=== PATIENT | male | born 1945 | race Two or more races ===

== ENCOUNTER 2021-05-26 23:00 | Emergency (ER) | payer OTHER ==
[~2021-05-26] VITALS: Ht 157.5 cm; Wt 86.2 kg
[2021-05-27 00:52] VITALS: BP 140/89
== END 2021-05-27 01:27 | disposition left against medical advice (07) ==
LOC: ER 23:00
DX: S61.211A Laceration without foreign body of left index finger without damage to nail, initial encounter (principal); Z53.21 Procedure and treatment not carried out due to patient leaving prior to being seen by health care provider; W26.0XXA Contact with knife, initial encounter; Y93.89 Activity, other specified; Y92.89 Other specified places as the place of occurrence of the external cause; Y99.8 Other external cause status

== ENCOUNTER 2022-02-25 11:34 | Emergency (ER) | payer OTHER ==
[~2022-02-25] VITALS: Ht 157.5 cm; Wt 88.9 kg
[2022-02-25 12:56] VITALS: BP 146/93
[2022-02-25] MEDS ORDERED: TETANUS-DIPTH-ACEL PERTUSSIS 0.5ML SYR Tdap IM ONE (13:15)
[2022-02-25] MEDS ORDERED: AMOX-277 PO (13:23)
== END 2022-02-25 13:47 | disposition home or self-care (01) ==
LOC: ER 11:34
DX: S61.411A Laceration without foreign body of right hand, initial encounter (principal); S61.451A Open bite of right hand, initial encounter; I10 Essential (primary) hypertension; Z79.2 Long term (current) use of antibiotics; W54.0XXA Bitten by dog, initial encounter; Y93.89 Activity, other specified; Y92.89 Other specified places as the place of occurrence of the external cause; Y99.8 Other external cause status
CPT/HCPCS: 12002; 90471; 90715; 99283; J2001

== ENCOUNTER 2022-03-06 09:15 | Emergency (ER) | payer OTHER ==
[~2022-03-06] VITALS: Ht 157.5 cm; Wt 88.9 kg
[~2022-03-06 09:15] MED LIST: AMOX-277 PO
[2022-03-06 12:18] VITALS: BP 139/86
== END 2022-03-06 12:48 | disposition home or self-care (01) ==
LOC: ER 09:15
DX: S61.411D Laceration without foreign body of right hand, subsequent encounter (principal); W54.0XXD Bitten by dog, subsequent encounter

== ENCOUNTER 2024-04-10 17:00 | Emergency (ER) | payer MEDICAID, OTHER ==
[~2024-04-10] VITALS: Ht 157.5 cm; Wt 88.0 kg
[~2024-04-10 17:00] MED LIST changes: -AMOX-277 PO; +AMOX875T4 PO
[2024-04-10 18:43] LABS: Basophils # (auto) 0 10 ^3/uL (0-0.2); Basophils % (auto) 0.8 % (0.0-2.0); Eosinophils # (auto) 0.1 10 ^3/uL (0-0.8); Eosinophils % (auto) 2.5 % (0.0-7.0); Hematocrit 46.9 % (41.0-53.0); Hemoglobin 15.7 g/dL (13.5-17.5); Mean Corpuscular Hemoglobin 30.6 pg (28.0-32.0); Mean Corpuscular Hgb Conc. 33.4 g/dL (32.0-36.0); Mean Corpuscular Volume 91.5 fL (80.0-100.0); Monocytes # (auto) 0.7 10 ^3/uL (0-1.3); Neutrophils # (auto) 2.8 10 ^3/uL (1.6-8.6); Neutrophils % (auto) 48.7 % (37.0-80.0); Nucleated Red Blood Cells % 0.4 %; Red Blood Cells 5.13 10^6/uL (4.5-5.90); Red Cell Distribution Width 13.4 % (11.8-14.3); White Blood Cell 5.7 10^3/uL (4.4-10.8)
[2024-04-10 19:01] LABS: Alanine Aminotransferase 15 U/L (7-40); Albumin 3.9 g/dL (3.2-4.8); Alkaline Phosphatase 66 U/L (46-116); Anion Gap 6 (5-15); Aspartate Aminotransferase 13 U/L (13-40); BUN/Creatinine Ratio 12.6 (10.0-20.0); Blood Urea Nitrogen 13 mg/dL (9-23); Calcium 9.6 mg/dL (8.7-10.4); Carbon Dioxide 29 mmol/L (20-30); Chloride 105 mmol/L (98-107); Glucose 96 mg/dL (74-106); Lipase 28 U/L (12-53); Potassium 4.7 mmol/L (3.5-5.1); Sodium 140 mmol/L (136-145)
[2024-04-10 19:02] LABS: Bilirubin, Total 0.4 mg/dL (0.2-1.0); Total Protein 6.1 g/dL (5.7-8.2)
[2024-04-10] MEDS ORDERED: PANT40T PO (20:08)
[2024-04-10] MEDS ORDERED: SUCR1SUS5 PO (20:08)
[2024-04-10] MEDS: SUCRALFATE 1 GM TAB PO ONE (20:42)
[2024-04-10] MEDS: PANTOPRAZOLE 40 MG TAB PO ONE (20:42)
[2024-04-10] MEDS: LIDOCAINE VISCOUS 2% 15ML UD PO ONE (20:47)
[2024-04-10] MEDS: hydrALAZINE HCL 10 MG TAB PO ONE (20:50)
[2024-04-10 21:14] LABS: Urine Bacteria None Seen /hpf (None Seen)
[2024-04-10 21:47] LABS: Urine Blood Negative /uL (Negative); Urine Clarity Clear (Clear); Urine Color Light-Yellow (Yellow); Urine Protein, UAD Negative (Negative); Urine Specific Gravity 1.013 (1.001-1.035); Urine Urobilinogen Normal (Negative); Urine WBC 1 /hpf (0 - 3)
[2024-04-10 22:12] VITALS: BP 147/87; PULSE 70; RESP 17; TEMP 98.5; O2SAT 96
== END 2024-04-10 22:13 | disposition home or self-care (01) ==
LOC: ER 17:04
DX: K44.9 Diaphragmatic hernia without obstruction or gangrene (principal); K59.00 Constipation, unspecified; I10 Essential (primary) hypertension
CPT/HCPCS: 36415; 74176; 80053; 81001; 83690; 84484; 85025; 93005

== ENCOUNTER → 2024-11-25 | Outpatient (CLI) | payer OTHER, MEDICAID ==
[~2024-11-25] MED LIST changes: +PANT40T PO; +SUCR1SUS5 PO
[2024-11-25 09:12] LABS: Urine Bacteria None Seen /hpf (None Seen)
[2024-11-25 09:46] LABS: Basophils # (auto) 0 10 ^3/uL (0-0.2); Basophils % (auto) 0.6 % (0.0-2.0); Eosinophils # (auto) 0.2 10 ^3/uL (0-0.8); Eosinophils % (auto) 3.1 % (0.0-7.0); Hematocrit 48.9 % (41.0-53.0); Hemoglobin 16.2 g/dL (13.5-17.5); Lymphocytes # (auto) 1.9 10 ^3/uL (0.4-5.4); Mean Corpuscular Hgb Conc. 33.1 g/dL (32.0-36.0); Mean Corpuscular Volume 90.8 fL (80.0-100.0); Monocytes # (auto) 0.5 10 ^3/uL (0-1.3); Monocytes % (auto) 9.8 % (0.0-12.0); Neutrophils # (auto) 2.8 10 ^3/uL (1.6-8.6); Neutrophils % (auto) 51.5 % (37.0-80.0); Nucleated Red Blood Cells % 0.1 %; Platelet Count (auto) 182 10^3/uL (140-450); Red Blood Cells 5.38 10^6/uL (4.5-5.90); Red Cell Distribution Width 14.7 % (11.8-14.3); White Blood Cell 5.3 10^3/uL (4.4-10.8)
[2024-11-25 09:54] LABS: Urine Blood Negative /uL (Negative); Urine Clarity Clear (Clear); Urine Color Light-Yellow (Yellow); Urine Protein, UAD Negative (Negative); Urine Specific Gravity 1.019 (1.001-1.035); Urine Squamous Epithelial Cell FEW /hpf (<5); Urine Urobilinogen Normal (Negative)
[2024-11-25 10:07] LABS: Alanine Aminotransferase 22 U/L (7-40); Albumin 4.4 g/dL (3.2-4.8); Alkaline Phosphatase 74 U/L (46-116); Anion Gap 8 (5-15); Aspartate Aminotransferase 20 U/L (13-40); BUN/Creatinine Ratio 12.8 (10.0-20.0); Blood Urea Nitrogen 15 mg/dL (9-23); Calcium 9.4 mg/dL (8.7-10.4); Carbon Dioxide 29 mmol/L (20-31); Chloride 102 mmol/L (98-107); Cholesterol 181 mg/dL (< 200); Glucose 94 mg/dL (74-106); Potassium 4.2 mmol/L (3.5-5.1); Sodium 139 mmol/L (136-145); Triglycerides 105 mg/dL (< 150)
[2024-11-25 10:08] LABS: Bilirubin, Total 0.6 mg/dL (0.2-1.0); HDL Cholesterol 37 mg/dL (40-59); Total Protein 6.7 g/dL (5.7-8.2)
[2024-11-25 10:09] LABS: LDL Cholesterol 132 mg/dL (< 100)
== END | disposition home or self-care (01) ==
LOC: LAB 08:58
PROVIDERS: ATTEND Internal Medicine
DX: I10 Essential (primary) hypertension (principal); E55.9 Vitamin D deficiency, unspecified; K92.1 Melena; Z85.46 Personal history of malignant neoplasm of prostate
CPT/HCPCS: 36415; 80053; 80061; 81001; 82274; 82306; 84153; 84443; 85025

== ENCOUNTER 2025-02-17 11:09 | Day surgery (SDC) | payer OTHER, MEDICAID ==
[2025-02-16 14:57] LABS: Basophils # (auto) 0 10 ^3/uL (0-0.2); Basophils % (auto) 0.6 % (0.0-2.0); Eosinophils # (auto) 0.1 10 ^3/uL (0-0.8); Eosinophils % (auto) 1.9 % (0.0-7.0); Hematocrit 51.8 % (41.0-53.0); Hemoglobin 17.3 g/dL (13.5-17.5); Lymphocytes # (auto) 1.6 10 ^3/uL (0.4-5.4); Lymphocytes % (auto) 27.5 % (10.0-50.0); Mean Corpuscular Hemoglobin 29.9 pg (28.0-32.0); Mean Corpuscular Hgb Conc. 33.3 g/dL (32.0-36.0); Mean Corpuscular Volume 89.8 fL (80.0-100.0); Monocytes # (auto) 0.7 10 ^3/uL (0-1.3); Neutrophils # (auto) 3.3 10 ^3/uL (1.6-8.6); Platelet Count (auto) 179 10^3/uL (140-450); Red Blood Cells 5.77 10^6/uL (4.5-5.90); Red Cell Distribution Width 14.1 % (11.8-14.3); White Blood Cell 5.7 10^3/uL (4.4-10.8)
[2025-02-16 15:12] LABS: INR 1.03 (0.9-1.15); Partial Thromboplastin Time 31.3 SEC (24.5-34.5); Prothrombin Time 10.9 sec (9.3-11.8)
[2025-02-16 15:26] LABS: Alanine Aminotransferase 18 U/L (7-40); Albumin 4.3 g/dL (3.2-4.8); Alkaline Phosphatase 72 U/L (46-116); Anion Gap 5 (5-15); Aspartate Aminotransferase 18 U/L (13-40); BUN/Creatinine Ratio 14.3 (10.0-20.0); Bilirubin, Total 0.5 mg/dL (0.2-1.0); Blood Urea Nitrogen 16 mg/dL (9-23); Calcium 9.9 mg/dL (8.7-10.4); Chloride 101 mmol/L (98-107); Glucose 87 mg/dL (74-106); Potassium 4.3 mmol/L (3.5-5.1); Sodium 138 mmol/L (136-145); Total Protein 6.9 g/dL (5.7-8.2)
[2025-02-16 15:31] LABS: Carbon Dioxide 32 mmol/L (20-31)
[~2025-02-17] VITALS: Ht 160 cm; Wt 84.8 kg
[~2025-02-17 11:09] MED LIST changes: +AML5T GT; -AMOX875T4 PO; -SUCR1SUS5 PO
[2025-02-17] MEDS ORDERED: SODIUM CHLORIDE LOCK 10 ML ONE (13:08)
[2025-02-17 13:15] VITALS: O2SAT 96
[2025-02-17] MEDS: LIDOCAINE VISCOUS 2% 15ML UD ONE (13:19)
[2025-02-17] MEDS: fentaNYL CITRATE 100 MCG/2 ML VL ONE (13:21)
[2025-02-17] MEDS: diphenhdrAMINE HCL 50 MG/1 ML VL ONE (13:21)
[2025-02-17] MEDS: MIDAZOLAM HCL 5 MG/ML-1ML VIAL ONE (13:21)
[2025-02-17 13:34] VITALS: PULSE 75; RESP 18; TEMP 97.4; O2SAT 99
--- NOTE | 2025-02-17 13:37 | DVHOP2 ---
Operative Report DATE OF OPERATION: 02/17/25 PROCEDURE: Upper Endoscopy with biopsy PREOPERATIVE INDICATION: The patient is a 80 -year-old male undergoing endoscopy for chronic GERD dyspepsia and bloating and imaging showing a large hiatal hernia POSTOPERATIVE DIAGNOSES: 1. 5 cm sliding-type hiatal hernia with a slight paraesophageal component with Kumar's erosions within the hiatal hernia sac and the diaphragmatic impingement 2. Mild gastritis otherwise normal examination up to the 2nd and 3rd part of the duodenum PROCEDURE PERFORMED BY: Clive Bazzi GI NURSE: Nicole SCOPE: Olympus videoendoscope. ASA CLASS: 2. PREOPERATIVE MEDICATIONS: Versed 3 mg, Fentanyl 75 mcg, Benadryl 50 mg I administered moderate sedation throughout this _8_ minutes procedure. An independent trained observer pushed medications at my direction, and monitored the patient's level of consciousness and physiological status throughout. PROCEDURE IN DETAIL: After obtaining an informed consent, the patient was placed on left lateral decubitus position. The patient was then sedated with the above medications. A bite block was placed between his teeth. The endoscope was then passed through the oropharynx, into the esophagus, and through the stomach and pylorus up to the second and third part of the duodenum. The endoscope was then withdrawn. Duodenal biopsies were obtained The 2nd and 3rd part of the duodenal and the duodenal bulb were normal. The pre-pyloric area antrum and body showed mild gastritis. Gastric biopsies were obtained On retroflexion the fundus cardia and angularis were normal. There was a hiatal hernia noted. The endoscope was then withdrawn into the distal esophagus Patient had a 5 cm sliding-type hiatal hernia with paraesophageal component, Kumar's erosions within the hiatal hernia sac and the diaphragmatic impingement The patient tolerated the procedure well without difficulty. COMPLICATIONS : None SPECIMENS: Duodenal biopsies Gastric biopsies DISPOSITION: Stable D/C to home PLAN: 1. Await for biopsy result 2. Will place pt on Protonix 40 mg p.o. daily 3. Lifestyle and dietary modifications for GERD 4. Resume GI soft diet 5. Avoid aspirin NSAIDs smoking and alcohol 6. Outpatient follow up with me in 4-6 weeks to review results and discuss further management CLIVE BAZZI MD February 17, 2025 13:37
[2025-02-17 13:44] VITALS: PULSE 84; RESP 20; O2SAT 93
[2025-02-17 13:54] VITALS: PULSE 80; RESP 20; O2SAT 96
[2025-02-17 14:34] VITALS: BP 147/87; PULSE 71; RESP 17; O2SAT 95
== END 2025-02-17 14:45 | disposition home or self-care (01) ==
LOC: GI 11:09
PROVIDERS: ATTEND Internal Medicine Gastroenterology
DX: K21.9 Gastro-esophageal reflux disease without esophagitis (principal); K29.50 Unspecified chronic gastritis without bleeding; K44.9 Diaphragmatic hernia without obstruction or gangrene; R10.13 Epigastric pain; R14.0 Abdominal distension (gaseous); I10 Essential (primary) hypertension; Z79.899 Other long term (current) drug therapy; Z98.890 Other specified postprocedural states
CPT/HCPCS: 36415; 43239; 80053; 85025; 85610; 85730; 88305; 88312; 88342; J1200; J2250; J3010; J7030; 99152

== ENCOUNTER 2025-06-06 10:01 | Inpatient (IN) | payer OTHER, MEDICAID ==
[~2025-06-06] VITALS: Ht 170.2 cm; Wt 89.7 kg
--- NOTE | 2025-06-06 10:28 | ED.PDOC ---
History of Present Illness HPI Comments 80-year-old male who is Burmese-speaking BIBA with prior medical history of hypertension, chronic back pain: Surgical history of prostate surgery, hernia repair and then chief complaint of back pain. Patient reports on having lower back pain started last night in called EMS stating that he is unable to ambulate due from the pain. Patient states feels like sciatica. Patient notes on not taking any medications for the back pain. Denies chills, fever, N/V/D, SOB, CP. No other associated symptoms, modifiers, recent injuries or sick contacts present at this time. Chief Complaint: Back Pain Time Seen by MD: 10:20 Primary Care Provider: DEB Rios Notes: Nurses Notes, Medications, Allergies Allergies: Coded Allergies: NO KNOWN ALLERGIES (Unverified , 02/25/22) Home Meds Active Scripts Pantoprazole Sodium Sesquihydr (Pantoprazole Sodium) 40 Mg Tab, 40 MG PO DAILY for 5 Days, #5 TAB Prov:H[employer] RESIDENT 04/10/24 Reported Medications Amlodipine Besylate (NORVASC TABLET) 5 Mg Tb, 5 MG GT DAILY, TAB 02/16/25 Information Source: Patient Mode of Arrival: EMS Severity: Moderate Timing: Hours Duration: Since onset, Hours Prehospital treatment: None Past Medical History PAST MEDICAL HISTORY: HTN Past Medical History (Other): Chronic back pain Surgical History: Hernia Repair Surgical History (Other): Prostate surgery Family History Family History: Reviewed,noncontributory to illness, Unknown Social History Smoker: Non-Smoker Alcohol: Denies ETOH Use Drugs: Denies Drug Use Lives In: Home Constitutional: denies: chills, diaphoresis, fatigue, fever, malaise, sweats, weakness, others EENTM: denies: blurred vision, double vision, ear bleeding, ear discharge, ear drainage, ear pain, ear ringing, eye pain, eye redness, hearing loss, mouth pain, mouth swelling, nasal discharge, nose bleeding, nose congestion, nose pain, photophobia, tearing, throat pain, throat swelling, voice changes, others Respiratory: denies: cough, hemoptysis, orthopnea, SOB at rest, shortness of breath, SOB with excertion, stridor, wheezing, others Cardiovascular: denies: chest pain, dizzy spells, diaphoresis, Dyspnea on exertion, edema, irregular heart beat, left arm pain, lightheadedness, palpitations, PND, syncope, others Gastrointestinal: denies: abdomen distended, abdominal pain, blood streaked bowels, constipated, diarrhea, dysphagia, difficulty swallowing, hematemesis, melena, nausea, poor appetite, poor fluid intake, rectal bleeding, rectal pain, vomiting, others Genitourinary: denies: burning, dysuria, flank pain, frequency, hematuria, incontinence, penile discharge, penile sore, pain, testicle pain, testicle swelling, urgency, others Neurological: denies: dizziness, fainting, headache, left sided numbness, left sided weakness, numbness, paresthesia, pre-existing deficit, right sided numbn ess, right sided weakness, seizure, speech problems, tingling, tremors, weakness, others Musculoskeletal: reports: back pain; denies: gout, joint pain, joint swelling, muscle pain, muscle stiffness, neck pain, others Integumetry: denies: bruises, change in color, change in hair/nails, dryness, laceration, lesions, lumps, rash, wounds, others Allergic/Immunocompromised: denies: Difficulty Healing, Frequent Infections, Hives, Itching, others Hematologic/Lymphatic: denies: anemia, blood clots, easy bleeding, easy bruising, swollen glands, others Endocrine: denies: excessive hunger, excessive sweating, excessive thirst, excessive urination, flushing, intolerance to cold, intolerance to heat, unexplained weight gain, unexplained weight loss, others Psychiatric: denies: anxiety, bipolar disorder, depression, hopeless, panic disorder, schizophrenia, sleepless, suicidal, others All Other Systems: Reviewed and Negative Physical Exam General Appearance: Moderate Distress, Normal HEENT: Normal ENT Inspection, Pharynx Normal, TMs Normal Neck: Full Range of Motion, Non-Tender, Normal, Normal Inspection Respiratory: Chest Non-Tender, Lungs Clear, No Accessory Muscle Use, No Respiratory Distress, Normal Breath Sounds Cardiovascular: No Edema, No JVD, No Murmur, No Gallop, Normal Peripheral Pulses, Regular Rate/Rhythm Breast Exam: Deferred Gastrointestinal: No Organomegaly, Non Tender, No Pulsatile Mass, Normal Bowel Sounds, Soft Genitalia: Deferred Pelvic: Deferred Rectal: Deferred Extremities: No calf tenderness, Normal capillary refill, Normal inspection, Normal range of motion, Non-tender, No pedal edema Musculoskeletal : Apperance: Normal Neurologic: Alert, welder/fitter II-XII nml as Tested, No Motor Deficits, Normal Affect, Normal Mood, No Sensory Deficits Cerebellar Function: NOT DONE Reflexes: NOT DONE Skin: Dry, Normal Color, Warm Peripheral Pulses: 3+ Radial (R), 3+ Radial (L) Lymphatic: No Adenopathy Was a procedure done? Was a procedure done?: No Differential Dx Considerations may include: Sciatica Electrolyte imbalance X-Ray, Labs, Meds, VS Vital Signs Date Time Temp Pulse Resp B/P (MAP) Pulse Ox O2 Delivery O2 Flow Rate FiO2 06/06/25 10:49 70 16 172/97 06/06/25 10:02 98.0 70 16 172/97 95 98.0 Lab Test 06/06/25 11:56 06/06/25 10:37 Range/Units Troponin I High Sensitivity 4 4 </=54 ng/L White Blood Count 6.5 4.4-10.8 10^3/uL Red Blood Count 5.40 4.5-5.90 10^6/uL Hemoglobin 16.6 13.5-17.5 g/dL Hematocrit 49.6 41.0-53.0 % Mean Corpuscular Volume 91.9 80.0-100.0 fL Mean Corpuscular Hemoglobin 30.7 28.0-32.0 pg Mean Corpuscular Hemoglobin Concent 33.4 32.0-36.0 g/dL Red Cell Distribution Width 14.3 11.8-14.3 % Platelet Count 189 140-450 10^3/uL Mean Platelet Volume 8.7 6.9-10.8 fL Neutrophils (%) (Auto) 58.0 37.0-80.0 % Lymphocytes (%) (Auto) 29.5 10.0-50.0 % Monocytes (%) (Auto) 10.2 0.0-12.0 % Eosinophils (%) (Auto) 1.9 0.0-7.0 % Basophils (%) (Auto) 0.4 0.0-2.0 % Neutrophils # (Auto) 3.8 1.6-8.6 10 ^3/uL Lymphocytes # (Auto) 1.9 0.4-5.4 10 ^3/uL Monocytes # (Auto) 0.7 0-1.3 10 ^3/uL Eosinophils # (Auto) 0.1 0-0.8 10 ^3/uL Basophils # (Auto) 0 0-0.2 10 ^3/uL Nucleated Red Blood Cells 0.2 % Sodium Level 141 136-145 mmol/L Potassium Level 5.1 3.5-5.1 mmol/L Chloride Level 101 98-107 mmol/L Carbon Dioxide Level 32 H 20-31 mmol/L Anion Gap 8 5-15 Blood Urea Nitrogen 17 9-23 mg/dL Creatinine 1.10 0.700-1.30 mg/dL Glomerular Filtration Rate Calc 69 >90 mL/min BUN/Creatinine Ratio 15.5 10.0-20.0 Serum Glucose 82 74-106 mg/dL Calcium Level 9.2 8.7-10.4 mg/dL Current Medications Medications (Trade) Dose Ordered Sig/Kamila Route Start Time Stop Time Status Last Admin Morphine Sulfate 4 mg ONCE ONCE IV 06/06/25 10:30 06/06/25 10:31 DC 06/06/25 10:49 Ondansetron HCl (Zofran) 4 mg ONCE ONCE IV 06/06/25 10:30 06/06/25 10:31 DC 06/06/25 10:47 Methylprednisolone Sodium Succinate (Solu Medrol) 125 mg ONCE ONCE IV 06/06/25 11:00 06/06/25 12:46 DC 06/06/25 12:22 [place] [address] Ph: [phone] DIAGNOSTIC IMAGING Diagnostic Imaging Report : [id number] Signed PATIENT: MALINDA YIN ACCT: [id number] UNIT: [id number] : 1945 LOC: ER ROOM / BED: / AGE / SEX: 80 / M ADM STATUS: REG ER SERVICE 1028 ORDERING PHYSICIAN: NANCY MONTES MD PROCEDURE(s): LS - LUMBAR SPINE 4+ VIEW REASON: pain ORDER NUMBER(s): [id number], ACCESSION NUMBER(s): [id number] XY LUMBAR SPINE 4+ VIEW, HISTORY: pain COMPARISON: None TECHNICAL DATA: Frontal and lateral views were obtained of the lumbar spine as well as bilateral oblique views . FINDINGS: There are 5 lumbar type vertebral bodies. Lumbar curvature is within normal limits. Moderate anterolisthesis of L5-S1 with bilateral pars defects. Vertebral body heights are maintained. Disk heights are narrowed and degenerative. The facet joints appear degenerative. The sacroiliac joints are symmetric. Paraspinal soft tissues are within normal limits. IMPRESSION: Moderate anterolisthesis of L5-S1 with bilateral pars defects. ATED BY: MAHESH RYAN MD DICTATED DATE/TIME: 06/06/251156 SIGNED BY: MAHESH RYAN MD SIGNED DATE/TIME: 06/06/251156 CC: [place] [address] Ph: [phone] DIAGNOSTIC IMAGING Diagnostic Imaging Report : [id number] Signed PATIENT: MALINDA YIN ACCT: [id number] UNIT: [id number] : 1945 LOC: ER ROOM / BED: / AGE / SEX: 80 / M ADM STATUS: REG ER SERVICE 1028 ORDERING PHYSICIAN: NANCY MONTES MD PROCEDURE(s): CXRP - CHEST PORTABLE REASON: sob ORDER NUMBER(s): [id number], ACCESSION NUMBER(s): [id number] XY CHEST PORTABLE, HISTORY: sob COMPARISON: None None TECHNICAL DATA: 1 view of the chest was obtained. FINDINGS: Lines and tubes: None Cardiomediastinal silhouette: normal Pulmonary vasculature: normal Lung expansion: normal Lung airspace: normal Lung interstitium: normal Pleura: normal Pneumothorax: no Bones: Unremarkable Other: no IMPRESSION: No acute intrathoracic abnormality. ATED BY: MAHESH RYAN MD DICTATED DATE/TIME: 06/06/251149 SIGNED BY: MAHESH RYAN MD SIGNED DATE/TIME: 06/06/251149 CC: Patient alert. Complaining of back pain. Possible sciatica. Able to move his extremities. Blood pressure elevated. Was given labetalol. Establish intravenous access. Was given morphine. Was given Zofran. Was given Solu-Medrol. Has good sphincter tone. Able to control his bowel movement. Possibly will need MRI. Explained to the patient. Continue monitoring. Time of 1ST Reevaluation: 10:50 Reevaluation 1ST: Unchanged Patient Education/Counseling: Diagnosis, Treatment, Prognosis Family Education/Counseling: No Family Present SEPSIS Sepsis Screen Date sepsis recognized/suspect: Jun 06, 2025 Time Sepsis recognized/suspect: 1002 Recent Procedure: No On Antibiotic Therapy: No Respiratory Rate >20: No Heart Rate >90: No Temp<36 C (96.8 F) or >38.3 C: No SBP <90 or MAP <65 mmHG: No New Acute Mental Status Change: No Is the patient on CPAP, BIPAP,: No Physician Orders Lumbar Spine 4+ View (06/06/25 10:28) Chest Portable (06/06/25 10:28) Urinalysis (06/06/25 10:28) Vital Signs Date Time Temp Pulse Resp B/P (MAP) Pulse Ox O2 Delivery O2 Flow Rate FiO2 06/06/25 10:49 70 16 172/97 06/06/25 10:02 98.0 70 16 172/97 95 98.0 Laboratory Tests Test 06/06/25 10:37 White Blood Count 6.5 10^3/uL (4.4-10.8) Medications Medications Dose Ordered Sig/Kamila Route Start Time Stop Time Status Last Admin Dose Admin Methylprednisolone Sodium Succinate 125 mg ONCE ONCE IV 06/06/25 11:00 06/06/25 12:46 DC 06/06/25 12:22 Morphine Sulfate 4 mg ONCE ONCE IV 06/06/25 10:30 06/06/25 10:31 DC 06/06/25 10:49 Ondansetron HCl 4 mg ONCE ONCE IV 06/06/25 10:30 06/06/25 10:31 DC 06/06/25 10:47 Departure 1 Departure Time of Disposition: 11:00 Impression: Primary Impression: Chronic pain syndrome Disposition: ADMITTED INPATIENT Admit to: Med Surg Condition: Guarded Critical Care Note Critical Care Time?: No Stability Stability form required: No Heart Score Heart Score: Heart Score Response (Comments) Value History Slightly Suspicious 0 EKG N/A 0 Age >65 2 Risk Factors >3 or Hx ASHD 2 Troponin Normal limit 0 Total 4 I personally scribed for NANCY MONTES MD ([email or web address]) on 06/06/25 at 10:28. Electronically submitted by Igor Perez ([email or web address]). I personally scribed for NANCY MONTES MD ([email or web address]) on 06/06/25 at 14:12. Electronically submitted by Keny Tarango ([email or web address]). I personally scribed for NANCY MONTES MD ([email or web address]) on 06/06/25 at 14:13. Electronically submitted by Keny Tarango ([email or web address]). NANCY MONTES MD Jun 06, 2025 10:28
[2025-06-06] MEDS: ONDANSETRON HCL 4 MG/2 ML VIAL IV ONE (10:47)
[2025-06-06] MEDS: MORPHINE SULFATE 4 MG/ML SYR/VIAL IV ONE (10:49)
[2025-06-06 11:10] LABS: Hematocrit 49.6 % (41.0-53.0); Hemoglobin 16.6 g/dL (13.5-17.5); Mean Corpuscular Hemoglobin 30.7 pg (28.0-32.0); Mean Corpuscular Volume 91.9 fL (80.0-100.0); Nucleated Red Blood Cells % 0.2 %
[2025-06-06 11:19] LABS: Anion Gap 8 (5-15); Chloride 101 mmol/L (98-107); Potassium 5.1 mmol/L (3.5-5.1); Sodium 141 mmol/L (136-145)
[2025-06-06 11:20] LABS: Calcium 9.2 mg/dL (8.7-10.4)
[2025-06-06 11:25] LABS: BUN/Creatinine Ratio 15.5 (10.0-20.0); Blood Urea Nitrogen 17 mg/dL (9-23); Glucose 82 mg/dL (74-106)
[2025-06-06 11:45] LABS: Carbon Dioxide 32 mmol/L (20-31)
--- NOTE | 2025-06-06 11:52 | DVH ---
XY CHEST PORTABLE, HISTORY: sob COMPARISON: None None TECHNICAL DATA: 1 view of the chest was obtained. FINDINGS: Lines and tubes: None Cardiomediastinal silhouette: normal Pulmonary vasculature: normal Lung expansion: normal Lung airspace: normal Lung interstitium: normal Pleura: normal Pneumothorax: no Bones: Unremarkable Other: no IMPRESSION: No acute intrathoracic abnormality.
--- NOTE | 2025-06-06 12:00 | DVH ---
XY LUMBAR SPINE 4+ VIEW, HISTORY: pain COMPARISON: None TECHNICAL DATA: Frontal and lateral views were obtained of the lumbar spine as well as bilateral obli que views . FINDINGS: There are 5 lumbar type vertebral bodies. Lumbar curvature is within normal limits. Moderate anteroli sthesis of L5-S1 with bilateral pars defects. Vertebral body heights are maintained. Disk heights ar e narrowed and degenerative. The facet joints appear degenerative. The sacroiliac joints are symmetri c. Paraspinal soft tissues are within normal limits. IMPRESSION: Moderate anterolisthesis of L5-S1 with bilateral pars defects.
[2025-06-06] MEDS: methylPREDNISolone SOD SUCC 125 MG/2 ML VL IV ONE (12:22)
[2025-06-06 16:22] LABS: Urine Protein, UAD TRACE (Negative)
--- NOTE | 2025-06-06 19:25 | DVHHPRES ---
History of Present Illness Resident Creating Document: KRYSTINA ACUNA RESIDENT Reason for Visit: Lower back pain History of Present Illness 79-year-old male with past medical history of hypertension, prediabetes, chronic back pain, prostate surgery, who presented to the ED with a complaint of severe back pain, pain was 8/10, patient was unable to ambulate due to back pain, he feels like sciatica. Patient was not taking any medication for back pain, on my examination patient has mild tenderness on his lower back. Past Medical History Hypertension, pre diabetes, chronic back pain Review of Systems Review of Systems CONSTITUTIONAL: Denies weight loss, fever and chills. HEENT: Denies changes in vision and hearing. RESPIRATORY: Denies SOB and cough. CV: Denies palpitations and chest pain. GI: Denies abdominal pain, nausea, vomiting and diarrhea. : Denies dysuria and urinary frequency. MSK: Admits lower back pain SKIN: Denies rash and pruritus. NEUROLOGICAL: Denies headache Allergies: Coded Allergies: NO KNOWN ALLERGIES (Unverified , 02/25/22) Exam Vital Signs Vital Signs Date Time Temp Pulse Resp B/P (MAP) Pulse Ox O2 Delivery O2 Flow Rate FiO2 06/06/25 10:49 70 16 172/97 06/06/25 10:02 98.0 95 98.0 Exam GENERAL: Not in acute distress. HEENT: EOMI, Moist mucous membranes. No scleral icterus. No cervical lymphadenopathy. LUNGS: Clear to auscultation bilaterally. No accessory muscle use. CARDIOVASCULAR: Regular rate and rhythm. No murmur. No JVD. ABDOMEN: Soft, nontender and nondistended. No palpable masses. EXTREMITIES: No edema. Mild tenderness on lower back SKIN: No rashes or lesions. Warm. NEUROLOGIC: Alert and oriented X3 Labs/Xrays Labs Test 06/06/25 15:53 06/06/25 11:56 06/06/25 10:37 Range/Units Urine Color Yellow Yellow Urine Clarity Clear Clear Urine pH 7.0 5.0-9.0 Urine Specific [place] 1.032 1.001-1.035 Urine Protein Trace H Negative Urine Ketones 1+ H Negative Urine Blood Negative Negative /uL Urine Nitrite Negative Negative Urine Bilirubin Negative Negative Urine Urobilinogen Normal Negative mg/dL Urine Leukocyte Esterase Negative Negative /uL Urine RBC 3 0 - 3 /hpf Urine Microscopic WBC 1 0-3 /HPF Urine Squamous Epithelial Cells Few <5 /hpf Urine Bacteria None seen None Seen /hpf Urine Mucus Few None Seen Urine Glucose Normal Normal mg/dL Troponin I High Sensitivity 4 </=54 ng/L White Blood Count 6.5 4.4-10.8 10^3/uL Red Blood Count 5.40 4.5-5.90 10^6/uL Hemoglobin 16.6 13.5-17.5 g/dL Hematocrit 49.6 41.0-53.0 % Mean Corpuscular Volume 91.9 80.0-100.0 fL Mean Corpuscular Hemoglobin 30.7 28.0-32.0 pg Mean Corpuscular Hemoglobin Concent 33.4 32.0-36.0 g/dL Red Cell Distribution Width 14.3 11.8-14.3 % Platelet Count 189 140-450 10^3/uL Mean Platelet Volume 8.7 6.9-10.8 fL Neutrophils (%) (Auto) 58.0 37.0-80.0 % Lymphocytes (%) (Auto) 29.5 10.0-50.0 % Monocytes (%) (Auto) 10.2 0.0-12.0 % Eosinophils (%) (Auto) 1.9 0.0-7.0 % Basophils (%) (Auto) 0.4 0.0-2.0 % Neutrophils # (Auto) 3.8 1.6-8.6 10 ^3/uL Lymphocytes # (Auto) 1.9 0.4-5.4 10 ^3/uL Monocytes # (Auto) 0.7 0-1.3 10 ^3/uL Eosinophils # (Auto) 0.1 0-0.8 10 ^3/uL Basophils # (Auto) 0 0-0.2 10 ^3/uL Nucleated Red Blood Cells 0.2 % Sodium Level 141 136-145 mmol/L Potassium Level 5.1 3.5-5.1 mmol/L Chloride Level 101 98-107 mmol/L Carbon Dioxide Level 32 H 20-31 mmol/L Anion Gap 8 5-15 Blood Urea Nitrogen 17 9-23 mg/dL Creatinine 1.10 0.700-1.30 mg/dL Glomerular Filtration Rate Calc 69 >90 mL/min BUN/Creatinine Ratio 15.5 10.0-20.0 Serum Glucose 82 74-106 mg/dL Calcium Level 9.2 8.7-10.4 mg/dL SEPSIS Sepsis Screen Date sepsis recognized/suspect: Jun 06, 2025 Time Sepsis recognized/suspect: 1002 Recent Procedure: No On Antibiotic Therapy: No Respiratory Rate >20: No Heart Rate >90: No Temp<36 C (96.8 F) or >38.3 C: No SBP <90 or MAP <65 mmHG: No New Acute Mental Status Change: No Is the patient on CPAP, BIPAP,: No Laboratory Tests Test 06/06/25 10:37 White Blood Count 6.5 10^3/uL (4.4-10.8) Medications Medications Dose Ordered Sig/Kamila Route Start Time Stop Time Status Last Admin Dose Admin Methylprednisolone Sodium Succinate 125 mg ONCE ONCE IV 06/06/25 11:00 06/06/25 12:46 DC 06/06/25 12:22 125 MG Morphine Sulfate 4 mg ONCE ONCE IV 06/06/25 10:30 06/06/25 10:31 DC 06/06/25 10:49 4 MG Ondansetron HCl 4 mg ONCE ONCE IV 06/06/25 10:30 06/06/25 10:31 DC 06/06/25 10:47 4 MG Assessment/Plan Assessment/Plan # Lower back pain # Rule out sciatica - x-ray of lumbar spine shows: Moderate anterolisthesis of L5-S1 with bilateral pars defects. - pain management with IV morphine/Hawkins # hypertension - continue amlodipine 10 mg daily - monitor BP # GERD - continue Protonix # Pre diabetes - ordered hemoglobin A1c - lifestyle modification, daily exercise, low carb low calorie diet DVT prophylaxis: Enoxaparin PUD prophylaxis: Protonix Goal of care discussed with patient for 36 minutes: Full code Case discussed with Dr. Rockwell Plan discussed with: Patient Date of Service: Jun 06, 2025 Billing Provider: LUDY ROCKWELL MD Common Visit Codes: [id number] INP/OBS CARE (HIGH) Secondary Visit Codes: [id number] CARE PLAN 30 MINUTES KRYSTINA ACUNA RESIDENT Jun 06, 2025 19:25
[2025-06-06] MEDS ORDERED: HYDROcodone-ACET 5/325MG TAB PO PRN (19:30)
[2025-06-06] MEDS ORDERED: NITROGLYCERIN 0.4 MG SL TAB SL PRN (19:30)
[2025-06-06] MEDS ORDERED: ONDANSETRON HCL 4 MG/2 ML VIAL IV PRN (19:30)
[2025-06-06] MEDS ORDERED: ACETAMINOPHEN 325 MG TAB PO PRN (19:30)
[2025-06-06] MEDS ORDERED: MORPHINE SULFATE INJ 2 MG/ml SYRG IV PRN ×2 (19:30)
[2025-06-06 21:36] VITALS: BP 139/87; PULSE 75; RESP 18; TEMP 98.4; O2SAT 97
[2025-06-06 22:45] VITALS: BP 129/75; PULSE 82; RESP 17; TEMP 98.1; O2SAT 93
[2025-06-06 22:50] VITALS: PULSE 82; RESP 18; O2SAT 95
[2025-06-07 01:00] VITALS: BP 129/77; PULSE 87; RESP 17; TEMP 97.8; O2SAT 94
[2025-06-07 05:00] VITALS: BP 135/83; PULSE 87; RESP 17; TEMP 97.7; O2SAT 93
[2025-06-07 07:39] LABS: Amphetamine Screen, Urine Neg (NEGATIVE); Barbiturate Scree,Urine Neg (NEGATIVE); Cannabinoid Screen, Urine Neg (NEGATIVE); Cocaine Screen, Urine Neg (NEGATIVE); Opiate Scree,Urine Pos (NEGATIVE); Phencyclidine Screen, Urine Neg (NEGATIVE)
[2025-06-07 08:00] VITALS: RESP 16
[2025-06-07 08:04] LABS: Triglycerides 100 mg/dL (< 150)
[2025-06-07 08:05] LABS: Cholesterol 178 mg/dL (< 200)
[2025-06-07 08:19] LABS: HDL Cholesterol 38 mg/dL (40-59)
--- NOTE | 2025-06-07 08:40 | DVHPN2 ---
Subjective Feeling great with no complaints; ready to go home; [place]-speaking; daughter helped with translation Reviewed: Care Plan, H&P, Labs, Medications, Previous Orders, Radiology Changes from previous H/P or p: Changes Objective Vitals Vital Signs Date Time Temp Pulse Resp B/P (MAP) Pulse Ox O2 Delivery O2 Flow Rate FiO2 06/07/25 05:00 97.7 87 17 135/83 (100) 93 97.7 06/06/25 22:50 Room Air* 0 21 Intake/Output Intake and Output 06/07/25 07:00 Intake Total 0 ml Balance 0 ml Intake Oral 0 ml # Voids 1 General Appearance: Alert, Oriented X3, Cooperative HEENT: Atraumatic Lungs: Clear to auscultation, Normal air movement Cardiovascular: Regular rate, Normal S1, Normal S2 Abdomen: Normal bowel sounds, Soft, No tenderness, No hepatospenomegaly Back: Other (No tenderness; normal range of movement) Neuro: Normal speech, Cranial nerves 3-12 NL Psych/Mental Status: Mental status NL, Mood NL Medications Current Medications Medications Dose Ordered Sig/Kamila Route Start Time Stop Time Status Last Admin Dose Admin Acetaminophen 650 mg Q6HP PRN PO 06/06/25 19:30 Acetaminophen/ Hydrocodone Bitart 1 tab Q4HP PRN PO 06/06/25 19:30 Ondansetron HCl 4 mg Q4HP PRN IV 06/06/25 19:30 Morphine Sulfate 2 mg Q4HPRN PRN IV 06/06/25 19:30 Enoxaparin Sodium 40 mg DAILY SC 06/07/25 10:00 Nitroglycerin 0.4 mg Q5MINP PRN SL 06/06/25 19:30 Morphine Sulfate 2 mg Q30M PRN IV 06/06/25 19:30 Amlodipine Besylate 5 mg DAILY GT 06/07/25 10:00 Pantoprazole Sodium 40 mg DAILY PO 06/07/25 10:00 Laboratory Results Laboratory Tests 06/06/25 10:37 Chemistry Test 06/06/25 10:37 Calcium Level 9.2 mg/dL (8.7-10.4) Lipid panel Test 06/07/25 05:45 Cholesterol Level 178 mg/dL (< 200) HDL Cholesterol 38 mg/dL (40-59) L Triglycerides Level 100 mg/dL (< 150) HgA1c, TSH Test 06/07/25 05:45 Hemoglobin A1c Pending Thyroid Stimulating Hormone (TSH) 0.52 uIU/mL (0.55-4.78) L Urinalysis Test 06/06/25 15:53 Urine Color Yellow (Yellow) Urine Clarity Clear (Clear) Urine pH 7.0 (5.0-9.0) Urine Specific [place] 1.032 (1.001-1.035) Urine Protein Trace (Negative) H Urine Ketones 1+ (Negative) H Urine Blood Negative /uL (Negative) Urine Nitrite Negative (Negative) Urine Bilirubin Negative (Negative) Urine Urobilinogen Normal mg/dL (Negative) Urine Leukocyte Esterase Negative /uL (Negative) Urine RBC 3 /hpf (0 - 3) Urine Microscopic WBC 1 /HPF (0-3) Urine Squamous Epithelial Cells Few /hpf (<5) Urine Bacteria None seen /hpf (None Seen) Urine Mucus Few (None Seen) Urine Glucose Normal mg/dL (Normal) Labs and/or images reviewed: Labs reviewed by me, Image(s) reviewed by me Assessment/Plan Assessment/Plan A 80-year-old male patient; with multiple comorbidities; who presented to the emergency department with severe low back pain. 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; to follow up with the primary care provider or discharge clinic within 1 to 2 weeks Hypertensive heart disease; to resume home antihypertensive medications upon discharge; to follow up with the primary care provider or discharge clinic within 1 to 2 weeks Prediabetes; to follow up with the primary care provider or discharge clinic within 1 to 2 weeks GERD; to resume home pantoprazole upon discharge summary to follow up with the primary care provider or discharge clinic within 1 to 2 weeks Obesity; counseled the patient on the importance of adopting healthy lifestyle with diet and exercise in order to lose weight; to follow up with the primary care provider or discharge clinic within 1 to 2 weeks Goals of care discussed with the patient, his , and his daughter for 20 minutes; full code Late Entry. This medical document was created using an electronic medical record system with computerized dictation system. Although this document has been carefully reviewed, there might still be some phonetic and typographical errors. These areas are purely typographical due to imperfections of the software programs, and do not reflect any compromise in the patient's medical care. Plan discussed with: Patient, Spouse, Daughter, Other (Nurse) Date of Service: Jun 07, 2025 Billing Provider: YOLANDA FRIEND MD Common Visit Codes: 43551-[id number] INP/OBS CARE(MOD) Secondary Visit Codes: 71180-[id number] CARE PLAN 30 MINUTES (20 minutes) YOLANDA FRIEND MD Jun 07, 2025 08:40
[2025-06-07 09:00] VITALS: BP 143/83; PULSE 84; RESP 17; TEMP 98.2; O2SAT 95
[2025-06-07 09:28] LABS: Benzodiazephine Screen, Urine Neg (NEGATIVE)
[2025-06-07] MEDS: PANTOPRAZOLE 40 MG TAB PO SCH (10:22)
[2025-06-07] MEDS: ENOXAPARIN SOD 40 MG/0.4 ML SYRINGE SC SCH (10:22)
[2025-06-07 13:00] VITALS: BP 126/82; PULSE 63; RESP 18; TEMP 98.1; O2SAT 94
[2025-06-07] MEDS ORDERED: HYDR-4902 PO (13:42)
--- NOTE | 2025-06-07 13:45 | DVHDS2 ---
Discharge Summary Date of Admission Jun 06, 2025 at 19:20 Date of Discharge: Jun 07, 2025 Admitting Diagnosis Severe low back pain Labs/Diagnostic Data: Laboratory Results Test 06/07/25 05:45 06/06/25 15:53 06/06/25 11:56 06/06/25 10:37 Hemoglobin A1c 5.8 % A1C (<5.7) Triglycerides Level 100 mg/dL (< 150) Cholesterol Level 178 mg/dL (< 200) LDL Cholesterol 130 mg/dL (< 100) HDL Cholesterol 38 mg/dL (40-59) Thyroid Stimulating Hormone (TSH) 0.52 uIU/mL (0.55-4.78) Urine Color Yellow (Yellow) Urine Clarity Clear (Clear) Urine pH 7.0 (5.0-9.0) Urine Specific [place] 1.032 (1.001-1.035) Urine Protein Trace (Negative) Urine Ketones 1+ (Negative) Urine Blood Negative /uL (Negative) Urine Nitrite Negative (Negative) Urine Bilirubin Negative (Negative) Urine Urobilinogen Normal mg/dL (Negative) Urine Leukocyte Esterase Negative /uL (Negative) Urine RBC 3 /hpf (0 - 3) Urine Microscopic WBC 1 /HPF (0-3) Urine Squamous Epithelial Cells Few /hpf (<5) Urine Bacteria None seen /hpf (None Seen) Urine Mucus Few (None Seen) Urine Glucose Normal mg/dL (Normal) Urine Opiates Screen Pos (NEGATIVE) Urine Fentanyl Screen Neg (NEGATIVE) Urine Barbiturates Screen Neg (NEGATIVE) Urine Phencyclidine Screen Neg (NEGATIVE) Urine Amphetamines Screen Neg (NEGATIVE) Urine Benzodiazepines Screen Neg (NEGATIVE) Urine Cocaine Screen Neg (NEGATIVE) Urine Cannabinoids Screen Neg (NEGATIVE) Troponin I High Sensitivity 4 ng/L (</=54) White Blood Count 6.5 10^3/uL (4.4-10.8) Red Blood Count 5.40 10^6/uL (4.5-5.90) Hemoglobin 16.6 g/dL (13.5-17.5) Hematocrit 49.6 % (41.0-53.0) Mean Corpuscular Volume 91.9 fL (80.0-100.0) Mean Corpuscular Hemoglobin 30.7 pg (28.0-32.0) Mean Corpuscular Hemoglobin Concent 33.4 g/dL (32.0-36.0) Red Cell Distribution Width 14.3 % (11.8-14.3) Platelet Count 189 10^3/uL (140-450) Mean Platelet Volume 8.7 fL (6.9-10.8) Neutrophils (%) (Auto) 58.0 % (37.0-80.0) Lymphocytes (%) (Auto) 29.5 % (10.0-50.0) Monocytes (%) (Auto) 10.2 % (0.0-12.0) Eosinophils (%) (Auto) 1.9 % (0.0-7.0) Basophils (%) (Auto) 0.4 % (0.0-2.0) Neutrophils # (Auto) 3.8 10 ^3/uL (1.6-8.6) Lymphocytes # (Auto) 1.9 10 ^3/uL (0.4-5.4) Monocytes # (Auto) 0.7 10 ^3/uL (0-1.3) Eosinophils # (Auto) 0.1 10 ^3/uL (0-0.8) Basophils # (Auto) 0 10 ^3/uL (0-0.2) Nucleated Red Blood Cells 0.2 % Sodium Level 141 mmol/L (136-145) Potassium Level 5.1 mmol/L (3.5-5.1) Chloride Level 101 mmol/L (98-107) Carbon Dioxide Level 32 mmol/L (20-31) Anion Gap 8 (5-15) Blood Urea Nitrogen 17 mg/dL (9-23) Creatinine 1.10 mg/dL (0.700-1.30) Glomerular Filtration Rate Calc 69 mL/min (>90) BUN/Creatinine Ratio 15.5 (10.0-20.0) Serum Glucose 82 mg/dL (74-106) Calcium Level 9.2 mg/dL (8.7-10.4) Other Laboratory Tests 06/06/25 10:37 Brief Hx & Hospital Course: A 80-year-old male patient; with multiple comorbidities; who presented to the emergency department with severe low back pain. 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; to follow up with the primary care provider or discharge clinic within 1 to 2 weeks Hypertensive heart disease; to resume home antihypertensive medications upon discharge; to follow up with the primary care provider or discharge clinic within 1 to 2 weeks Prediabetes; to follow up with the primary care provider or discharge clinic within 1 to 2 weeks GERD; to resume home pantoprazole upon discharge summary to follow up with the primary care provider or discharge clinic within 1 to 2 weeks Obesity; counseled the patient on the importance of adopting healthy lifestyle with diet and exercise in order to lose weight; to follow up with the primary care provider or discharge clinic within 1 to 2 weeks Late Entry. This medical document was created using an electronic medical record system with computerized dictation system. Although this document has been carefully reviewed, there might still be some phonetic and typographical errors. These areas are purely typographical due to imperfections of the software programs, and do not reflect any compromise in the patient's medical care. 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 Friend within one week or to follow up with the primary care provider within 1 to 2 weeks Medications: To continue home medications; [place] 5/325 q.8 hours as needed for severe pain was sent; total of 21 tablets Scheduled Amlodipine Besylate (Norvasc Tablet), 5 MG GT DAILY, (Reported) Pantoprazole Sodium Sesquihydr (Pantoprazole Sodium), 40 MG PO DAILY Scheduled PRN Hydrocodone-Acetaminophen (Hydrocodone Bitartrate/AC 5-325 mg), 1 TAB PO Q8HPRN PRN Discharge Statement: "Patient was advised to return to the ER or call 911 if any headaches, dizziness, shortness of breath, chest pain, abdominal pain, bleeding, fevers, or worsening of medical condition. Patient was counseled about treatment plan, medications, possible side effects, patientverbalized understanding. All questions were answered to the best of my ability. 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
[2025-06-07 14:46] VITALS: BP 143/83; TEMP 36.7
== END 2025-06-07 15:30 | disposition home or self-care (01) | DRG 552 ==
LOC: ER 10:01 → EDBD 10:01 → OVERFLOW 19:20 → WEST WING 22:45
PROVIDERS: ADMIT Internal Medicine; ATTEND Emergency Medicine
DX: M43.17 Spondylolisthesis, lumbosacral region (principal); K21.9 Gastro-esophageal reflux disease without esophagitis; R73.03 Prediabetes; E66.9 Obesity, unspecified; I11.9 Hypertensive heart disease without heart failure; G89.4 Chronic pain syndrome; Z79.899 Other long term (current) drug therapy; Z68.31 Body mass index [BMI] 31.0-31.9, adult
CPT/HCPCS: 36415; 71045; 72110; 80048; 80061; 80307; 81001; 83036; 84443; 84484; 85025; 96374; 96375; G0378; J2405

== ENCOUNTER 2025-08-21 11:04 | Day surgery (SDC) | payer OTHER, MEDICAID ==
[2025-08-19 11:32] LABS: Hematocrit 50.4 % (41.0-53.0); Hemoglobin 17.0 g/dL (13.5-17.5); Mean Corpuscular Hemoglobin 30.7 pg (28.0-32.0); Mean Corpuscular Volume 90.9 fL (80.0-100.0); Nucleated Red Blood Cells % 0.1 %
[2025-08-19 11:46] LABS: INR 1.0 (0.9-1.15); Partial Thromboplastin Time 31.2 SEC (24.5-34.5); Prothrombin Time 10.6 sec (9.3-11.8)
[2025-08-19 11:54] LABS: Alanine Aminotransferase 18 U/L (7-40); Albumin 4.4 g/dL (3.2-4.8); Alkaline Phosphatase 81 U/L (46-116); Anion Gap 8 (5-15); BUN/Creatinine Ratio 12.8 (10.0-20.0); Bilirubin, Total 0.6 mg/dL (0.2-1.0); Blood Urea Nitrogen 14 mg/dL (9-23); Calcium 9.5 mg/dL (8.7-10.4); Chloride 100 mmol/L (98-107); Glucose 78 mg/dL (74-106); Potassium 4.3 mmol/L (3.5-5.1); Sodium 140 mmol/L (136-145); Total Protein 7.3 g/dL (5.7-8.2)
[2025-08-19 11:57] LABS: Carbon Dioxide 32 mmol/L (20-31)
[2025-08-19 12:07] LABS: Urine Protein, UAD Negative (Negative)
[~2025-08-21] VITALS: Ht 157.5 cm; Wt 87.1 kg
[~2025-08-21 11:04] MED LIST changes: +OMEP20TA PO; -PANT40T PO
[2025-08-21] MEDS ORDERED: PROPOFOL 10 MG/ML 20 ML IV ONE (13:09)
[2025-08-21] MEDS ORDERED: LIDOCAINE 1% INJ PF 5ML AMP ONE (13:10)
[2025-08-21 13:31] VITALS: PULSE 75; RESP 16; TEMP 97.6; O2SAT 98
[2025-08-21] MEDS ORDERED: ONDANSETRON HCL 4 MG/2 ML VIAL IV PRN (13:45)
--- NOTE | 2025-08-21 14:10 | DVHOP2 ---
Operative Report DATE OF OPERATION: 08/21/25 PROCEDURE: Colonoscopy with hot snare polypectomy. PREOPERATIVE INDICATION: The patient is a 80 -year-old male undergoing colonoscopy for colon cancer screening with history of constipation POSTOPERATIVE DIAGNOSES: 1. 5-6 mm benign-appearing sigmoid polyp was seen and removed by hot snare polypectomy 2. [id number] sigmoid diverticular disease 3. Trace to 1+ internal hemorrhoids otherwise completely normal colonoscopy examination up to the cecum and terminal ileum PROCEDURE PERFORMED BY: Clive Bazzi M.D. SCOPE: Olympus videocolonoscope. ASA CLASS: 3. PREOPERATIVE MEDICATIONS: Dr. Hardeep Lopez PROCEDURE IN DETAIL: After obtaining an informed consent, the patient was placed on left lateral decubitus position. He was then sedated with the above medications. A rectal examination was performed that was normal. The colonoscope was then passed through the anus into the rectosigmoid and through the descending, transverse, and ascending colon up to the cecum with visualization of the appendiceal orifice, base of the cecum and the ileocecal valve. The colonoscope was then withdrawn. Distal 5 cm of the terminal ileum were normal No masses or colitis were seen. Patient had moderate sigmoid diverticular disease Patient did have a 5 mm benign-appearing sigmoid polyp that was seen and removed by hot snare polypectomy and the specimens were retrieved On retroflexion and straight on view he had trace to 1+ internal hemorrhoids The patient tolerated the procedure well without difficulty. WITHDRAWAL TIME: 7 minutes QUALITY OF THE PREP: [place] Bowel Prep score: 9. COMPLICATIONS : None SPECIMENS: Sigmoid colon polyp DISPOSITION: Stable D/C to home PLAN: 1. Repeat colonoscopy base on biopsy result likely in five years 2. Resume GI soft diet advance as tolerated 3. Increase fluid and fiber intake 4. Outpatient follow up with me in 2-4 weeks to review results and discuss further management CLIVE BAZZI MD Aug 21, 2025 14:10
[2025-08-21 14:15] VITALS: BP 127/79; PULSE 75; RESP 14; O2SAT 95
== END 2025-08-21 14:25 | disposition home or self-care (01) ==
LOC: GI 11:04
PROVIDERS: ATTEND Internal Medicine Gastroenterology
DX: K59.00 Constipation, unspecified (principal); D12.5 Benign neoplasm of sigmoid colon; K57.30 Diverticulosis of large intestine without perforation or abscess without bleeding; K64.8 Other hemorrhoids; M19.90 Unspecified osteoarthritis, unspecified site; I10 Essential (primary) hypertension; K21.9 Gastro-esophageal reflux disease without esophagitis; Z87.891 Personal history of nicotine dependence; Z79.899 Other long term (current) drug therapy
CPT/HCPCS: 36415; 45385; 80053; 81001; 85025; 85610; 85730; 88305; J2704; J7030

== ENCOUNTER 2025-09-09 10:37 | Outpatient (CLI) | payer OTHER, MEDICAID | END 2025-09-09 17:00 | disposition home or self-care (01) | LOC: Rad HDHVI 10:37 | PROVIDERS: ATTEND Internal Medicine Cardiovascular Disease | DX: I08.2 Rheumatic disorders of both aortic and tricuspid valves (principal); I10 Essential (primary) hypertension; I20.9 Angina pectoris, unspecified | CPT/HCPCS: 93306 ==

== ENCOUNTER 2025-09-18 09:11 | Outpatient (CLI) | payer OTHER, MEDICAID ==
[~2025-09-18] VITALS: Ht 157.5 cm; Wt 86.2 kg
[2025-09-18] MEDS ORDERED: ADENOSINE 90 MG/30 ML INJ IV ONE (09:45)
[2025-09-18] MEDS ORDERED: ADENOSINE 72 MG in GIVE UN-DILUTED 0 ML IV ONE (12:00)
== END 2025-09-18 17:00 | disposition home or self-care (01) ==
LOC: Rad HDHVI 09:11
PROVIDERS: ATTEND Internal Medicine Cardiovascular Disease
DX: I49.1 Atrial premature depolarization (principal); I49.3 Ventricular premature depolarization; R00.1 Bradycardia, unspecified; R07.89 Other chest pain; I10 Essential (primary) hypertension; R73.03 Prediabetes; Z82.49 Family history of ischemic heart disease and other diseases of the circulatory system
CPT/HCPCS: 78452; 93017; A9500; J0153